=== PATIENT | female | born 1950 | race Caucasian/White ===

== ENCOUNTER 2025-01-16 11:00 | Outpatient (RCR) | payer MEDICARE, MEDICAID, SELFPAY ==
--- NOTE | 2024-12-24 15:24 | PTNOTE_ITS ---
PT OP Initial Eval Patient Information Outpatient Physical Therapy Treatment Date: 12/24/24 Visit Reasons: Gait and balance Medical Diagnosis: Gait Imabalance Treatment Dx #1: Decrease endurance Treatment Dx #2: Gait Imbalance Start of Care: 12/24/24 Date of Onset: 6 months ago Smoking Status Smoking Status: Never smoker Initial Assessment Subjective: Pt is a 74 y/o female reports of unsteadiness, imbalance, and decrease endurance ~ 6 months ago. Pt has been diagnosed with Parkinson ~ 3 years ago and her back is fused. Pt has limitation with walking, standing, balance, chores, uneven surfaces, and performing recreational activities. Objective: BLE AROM: all motions are WFL BLE MMTs: grossly 4-/5 TU sec Sit-Stand Test: 7 reps Assessment: Pt demonstrate unsteadiness and fall risk leading to difficulty with ADLs. Pt will benefit from physical therapy to increase mobility, work on endurance, and balance. Short Term and Chcf Goals 1) Increase BLE MMTs grossly to 4/5 in 6 wks to be able to cook and clean around the house 2) Decrease TUG score to 13 sec in 6 wsk to prevent future falls 3) Increase sit to stand reps to 10 in 6 wks to be able to walk more than 30 mins 4) Improve dynamic balance in 6 wks to be able to perform ADLs within the house with less use of the walker 5) Indep with HEP Treatment Plan 1) Manual Therapy 2) Therapeutic Activities 3) Therapeutic Exercises 4) Balance Training 5) Gait Training Frequency and Duration: 2 x wk for 6 wks Certification Dates: 12/24/24 to 03/26/25 Procedure Charges OP PT Eval Mod Complex 30 minutes: Yes
--- NOTE | 2024-12-31 13:03 | PTNOTE_ITS ---
PT Outpatient Daily Note OP Daily Note Outpatient Physical Therapy Treatment Date: 12/31/24 Visit Reasons: Gait and balance Subjective: No new complaints. Objective: Please see flow sheet for ther ex list. Assessment: Pt demonstrates poor endurance, interventions given alternating sitting and standing to maximize participation. Plan: Continue with pOC. Length of Time (minutes) of Treatment: 30 Minutes FORMS DESIGNER Service Modifier Method I: Divide the number of min of care provided by the FORMS DESIGNER/KRISTINA by the total min of care provided then multiply by 100. If greater than 11 percent modifier is required. Method II: Divide the total time of care provided to patient by 10 (round to the nearest whole number) and add 1 min. to set the minimum time requirement. If treatment total was 60 min., then 10% of 6 min PT CQ modifier applied: CQ Modifier applied Procedure Charges Therapeutic Exercise 30 minutes: Yes
--- NOTE | 2025-01-02 12:54 | PTNOTE_ITS ---
PT Outpatient Daily Note OP Daily Note Outpatient Physical Therapy Treatment Date: 01/02/25 Visit Reasons: Gait and balance Subjective: Pt's legs still feels weak. Pt mentioned she was fatigue after last session Objective: Please see flow chart for list of ther ex performed Assessment: patient BLE fatigue post PT session. Pt was able to use sci-fit for 5 min, meryl chang, reported increase leg shakiness towards the end. Sci fit was stopped at 5 mins Plan: Continue with PT Length of Time (minutes) of Treatment: 30 Minutes Procedure Charges Therapeutic Exercise 30 minutes: Yes
--- NOTE | 2025-01-07 12:53 | PT.ODAYNRPT ---
PT Outpatient Daily Note OP Daily Note Outpatient Physical Therapy Treatment Date: 01/07/25 Visit Reasons: Gait and balance Subjective: Pt's leg fatigue after last session. Pt mentioned she is still fearful of a fall. Objective: Please see flow chart for list of ther ex performed Assessment: exhibit BLE fatigue post PT session. Pt unable to complete all of 6 laps of side step and needed sitting break due to BLE fatigue Plan: Continue with PT Length of Time (minutes) of Treatment: 30 Minutes Procedure Charges Therapeutic Exercise 30 minutes: Yes
--- NOTE | 2025-01-14 12:53 | PT.ODAYNRPT ---
PT Outpatient Daily Note OP Daily Note Outpatient Physical Therapy Treatment Date: 01/14/25 Visit Reasons: Gait and balance Subjective: Pt's legs are still feeling weak. Pt is unsure if she can complete 5-6 mins of the sci fit. Objective: Please see flow chart for list of ther ex performed Assessment: Pt demonstrate improved BLE endurance and strength and taking less rest breaks. Pt also did not feel fatigue post sci fit and completed instructed time (5 mins) Plan: Continue with PT Length of Time (minutes) of Treatment: 30 Minutes Procedure Charges Therapeutic Exercise 30 minutes: Yes
--- NOTE | 2025-01-16 11:46 | PT.ODAYNRPT ---
PT Outpatient Daily Note OP Daily Note Outpatient Physical Therapy Treatment Date: 01/16/25 Visit Reasons: Gait and balance Subjective: Pt's feeling stronger and more confidence with her balance. Objective: Please see flow chart for list of ther ex performed Assessment: continue to take less breaks between exercises indicating continued improve overall endurance. Less cues given to keep toes straight with monster and side step exercise Plan: Continue with PT Length of Time (minutes) of Treatment: 30 Minutes Procedure Charges Therapeutic Exercise 30 minutes: Yes
== END 2025-01-16 23:59 | disposition home or self-care (01) ==
LOC: CPTX 11:00
PROVIDERS: PCP Internal Medicine; Referring Provider Internal Medicine; Visit Provider Internal Medicine
DX: R26.89 Other abnormalities of gait and mobility (principal); R26.2 Difficulty in walking, not elsewhere classified; Z91.81 History of falling
CPT/HCPCS: 97110; 97162

== ENCOUNTER 2025-02-09 13:30 | Outpatient (RCR) | payer MEDICARE, MEDICAID, SELFPAY ==
--- NOTE | 2025-01-21 14:05 | PTNOTE_ITS ---
PT Outpatient Daily Note OP Daily Note Outpatient Physical Therapy Treatment Date: 01/21/25 Visit Reasons: gait and balance issues Subjective: No new complaints. Objective: Please see flow sheet for ther ex list. Assessment: Progressed closed chain interventions, pt tolerated well but required seated rest breaks for energy conservation. Plan: Continue with poC . Length of Time (minutes) of Treatment: 30 Minutes FINGER LIFT OPERATOR Service Modifier Method I: Divide the number of min of care provided by the FINGER LIFT OPERATOR/KRISTINA by the total min of care provided then multiply by 100. If greater than 11 percent modifier is required. Method II: Divide the total time of care provided to patient by 10 (round to the nearest whole number) and add 1 min. to set the minimum time requirement. If treatment total was 60 min., then 10% of 6 min PT CQ modifier applied: CQ Modifier applied Procedure Charges Therapeutic Exercise 30 minutes: Yes
--- NOTE | 2025-01-28 13:40 | PTNOTE_ITS ---
PT Outpatient Daily Note OP Daily Note Outpatient Physical Therapy Treatment Date: 01/28/25 Visit Reasons: gait and balance issues Subjective: Pt reports feeling like she can last more on her feet. Objective: Please see flow sheet for ther ex list. Assessment: Interventions given alternating sitting and standing to maximize pt participation. Plan: Continue with poC. Length of Time (minutes) of Treatment: 30 Minutes PREFITTER DOORS Service Modifier Method I: Divide the number of min of care provided by the PREFITTER DOORS/GROUNDS MAINTENANCE SUPERVISOR by the total min of care provided then multiply by 100. If greater than 11 percent modifier is required. Method II: Divide the total time of care provided to patient by 10 (round to the nearest whole number) and add 1 min. to set the minimum time requirement. If treatment total was 60 min., then 10% of 6 min PT CQ modifier applied: CQ Modifier applied Procedure Charges Therapeutic Exercise 30 minutes: Yes
--- NOTE | 2025-01-30 14:57 | PT.ODS1RPT ---
PT OP Progress/Discharge Note Date of Service: 01/30/25 Progress Note/DC Note Progress Note/Discharge Note: Progress Note Patient Information Visit Reasons: gait and balance issues Medical Diagnosis: Gait Imbalance Treatment Dx #1: Decrease Endurance Treatment Dx #2: Gait Imbalance Service Continue Service or Discharge: Continue Service Certification Date Certification Dates: 01/30/25 to 05/02/25 Status Subjective: Pt's legs, endurance, and balance is much better since starting physical therapy. Pt has been able to walk longer, stand, perform chores, and ADLs with less limitation. Objective: BLE AROM: all motions are WNL BLE MMTs: grossly 4/5 TU sec Sit-Stand Test: 10 reps Sharpen Romber sec Assessment: Pt demonstrate improvement with BLE strength, endurance, and balance allowing her to ambulate and start light ADLs with less limitation. Pt has not met set goals and will continue to benefit from physical therapy to improve balance, endurance, and work on gait mechanics; thank you for your referrals. Plan: Continue with PT/POC and add 8 sessions (2 x wk for 4 wks) Procedure Charges Therapeutic Exercise 30 minutes: Yes
--- NOTE | 2025-02-09 14:07 | PT.ODAYNRPT ---
PT Outpatient Daily Note OP Daily Note Outpatient Physical Therapy Treatment Date: 02/09/25 Visit Reasons: gait and balance issues Subjective: No new complaints. Objective: Please see flow sheet for ther ex list. Assessment: Interventions given alternating sitting and standing to maximize pt participation. Plan: Continue with POC. Length of Time (minutes) of Treatment: 30 Minutes EPOXY COATINGS INSTALLER Service Modifier Method I: Divide the number of min of care provided by the EPOXY COATINGS INSTALLER/HULL MOLDER by the total min of care provided then multiply by 100. If greater than 11 percent modifier is required. Method II: Divide the total time of care provided to patient by 10 (round to the nearest whole number) and add 1 min. to set the minimum time requirement. If treatment total was 60 min., then 10% of 6 min PT CQ modifier applied: CQ Modifier applied Procedure Charges Therapeutic Exercise 30 minutes: Yes
== END 2025-02-15 23:59 | disposition home or self-care (01) ==
LOC: CPTX 13:30
PROVIDERS: PCP Internal Medicine; Referring Provider Internal Medicine; Visit Provider Internal Medicine
DX: R26.89 Other abnormalities of gait and mobility (principal); R26.2 Difficulty in walking, not elsewhere classified
CPT/HCPCS: 97110

== ENCOUNTER 2025-03-18 11:30 | Outpatient (RCR) | payer MEDICARE, MEDICAID, SELFPAY ==
--- NOTE | 2025-02-16 14:29 | PT.ODAYNRPT ---
PT Outpatient Daily Note OP Daily Note Outpatient Physical Therapy Treatment Date: 02/16/25 Visit Reasons: Gait and balance Subjective: Pt is walking better and more confidence with standing activities. Objective: Please see flow chart for list of ther ex performed Assessment: difficulty clearing steps due to weakness. Pt practice sit to stand exercise and was fatigue after the 17th reps, however, able to complete instructed reps Plan: Continue with PT Length of Time (minutes) of Treatment: 30 Minutes Procedure Charges Therapeutic Exercise 30 minutes: Yes
--- NOTE | 2025-02-18 13:26 | PT.ODAYNRPT ---
PT Outpatient Daily Note OP Daily Note Outpatient Physical Therapy Treatment Date: 02/18/25 Visit Reasons: Gait and balance Subjective: Pt reports progress. Objective: Please see flow sheet for ther ex list. Assessment: Pt demonstrates increase endurance for closed chain interventions indicated by less seated rest breaks in between exercises. Plan: Continue with poC. Length of Time (minutes) of Treatment: 30 Minutes RECEPTIONIST SECRETARY Service Modifier Method I: Divide the number of min of care provided by the RECEPTIONIST SECRETARY/WIRE STRAIGHTENER by the total min of care provided then multiply by 100. If greater than 11 percent modifier is required. Method II: Divide the total time of care provided to patient by 10 (round to the nearest whole number) and add 1 min. to set the minimum time requirement. If treatment total was 60 min., then 10% of 6 min PT CQ modifier applied: CQ Modifier applied Procedure Charges Therapeutic Exercise 30 minutes: Yes
--- NOTE | 2025-02-27 14:40 | PT.ODAYNRPT ---
PT Outpatient Daily Note OP Daily Note Outpatient Physical Therapy Treatment Date: 02/27/25 Visit Reasons: Gait and balance Subjective: Pt reports she has been doing some exercises at home while she was waiting to restart PT. Objective: Please see flow sheet for ther ex list. Assessment: Interventions given alternating sitting and standing to maximize pt participation. Plan: Continue with POC. Length of Time (minutes) of Treatment: 30 Minutes FORMAL SERVICE WAITER Service Modifier Method I: Divide the number of min of care provided by the FORMAL SERVICE WAITER/KRISTINA by the total min of care provided then multiply by 100. If greater than 11 percent modifier is required. Method II: Divide the total time of care provided to patient by 10 (round to the nearest whole number) and add 1 min. to set the minimum time requirement. If treatment total was 60 min., then 10% of 6 min PT CQ modifier applied: CQ Modifier applied Procedure Charges Therapeutic Exercise 30 minutes: Yes
--- NOTE | 2025-03-09 13:25 | PT.ODAYNRPT ---
PT Outpatient Daily Note OP Daily Note Outpatient Physical Therapy Treatment Date: 03/09/25 Visit Reasons: Gait and balance Subjective: No new complaints or concerns. Objective: Please see flow sheet for ther ex list. Assessment: Cues to avoid heavy use of ROLL EDGE MACHINE OPERATOR during closed chain interventions, cues to use B UE light touch on parallel for balance pt complied. Plan: Continue with POC. Length of Time (minutes) of Treatment: 30 Minutes TECHNICIAN SUPPORT ASSOCIATION Service Modifier Method I: Divide the number of min of care provided by the TECHNICIAN SUPPORT ASSOCIATION/SEQUINS WINDER by the total min of care provided then multiply by 100. If greater than 11 percent modifier is required. Method II: Divide the total time of care provided to patient by 10 (round to the nearest whole number) and add 1 min. to set the minimum time requirement. If treatment total was 60 min., then 10% of 6 min PT CQ modifier applied: CQ Modifier applied Procedure Charges Therapeutic Exercise 30 minutes: Yes
--- NOTE | 2025-03-18 12:08 | PT.ODAYNRPT ---
PT Outpatient Daily Note OP Daily Note Outpatient Physical Therapy Treatment Date: 03/18/25 Visit Reasons: Gait and balance Subjective: Pt's legs are feeling better. Pt wants to continue to work on balance Objective: Please see flow chart for list of ther ex performed Assessment: patient BLE fatigue post PT session due to using YTB with side step, monster walk, and LAQ exercises Plan: Continue with PT Length of Time (minutes) of Treatment: 30 Minutes Procedure Charges Therapeutic Exercise 30 minutes: Yes
== END 2025-03-18 23:59 | disposition home or self-care (01) ==
LOC: CPTX 11:30
PROVIDERS: PCP Internal Medicine; Referring Provider Internal Medicine; Visit Provider Internal Medicine
DX: R26.89 Other abnormalities of gait and mobility (principal); R26.2 Difficulty in walking, not elsewhere classified; G20.A1 Parkinson's disease without dyskinesia, without mention of fluctuations
CPT/HCPCS: 97110